=== PATIENT | male | born 1980 | race Asian ===

== ENCOUNTER → 2017-12-26 | Emergency (ER) | payer OTHER ==
[~2017-12-26] VITALS: Ht 172.7 cm; Wt 63.5 kg
[~2017-12-26] MED LIST: IBUPROFEN600 M1 PO; PERCOCET 5-3251 EACH PO; PROTONIX40 M3 PO; REGLAN10 M1 PO
[2017-12-26 23:12] LABS: ABSOLUTE BASOPHIL COUNT 0.1 /CUMM (0.0-0.2); ABSOLUTE EOSINOPHIL COUNT 0 /CUMM (0.0-0.7); ABSOLUTE GRANULOCYTE CT 3.2 /CUMM (1.4-6.5); ABSOLUTE LYMPH COUNT 3.3 /CUMM (1.2-3.4); ABSOLUTE MONOCYTE COUNT 0.7 /CUMM (0.10-0.60); BASOPHIL % 0.7 % (0.0-2.0); EOSINOPHIL % 0.4 % (0-5); GRANULOCYTE % 43.8 % (42.2-75.2); HEMATOCRIT 50.4 % (42-52); MEAN CORPUSCULAR HGB 31.3 PG (27.0-31.0); MEAN CORPUSCULAR HGB CONC 34.4 G/DL (33.0-37.0); MEAN PLATELET VOLUME 7.8 FL (7.4-10.4); PLATELET COUNT 151 /CUMM (130-400); RBC DISTRIBUTION WIDTH 12.9 % (11.5-14.5); RED BLOOD CELL CT 5.54 /CUMM (4.70-6.10); WHITE BLOOD CELL COUNT 7.3 /CUMM (4.8-10.8)
--- NOTE | 2017-12-26 23:55 | ED GENERAL ADULT ---
See Addendum History of Present Illness General Chief Complaint: Nausea, Vomiting, Diarrhea Stated Complaint: NVD,DIZZINESS Source: patient, family Exam Limitations: no limitations Vital Signs & Intake/Output Vital Signs & Intake/Output Vital Signs Date Time Temp Pulse Resp B/P B/P Pulse O2 O2 Flow FiO2 Mean Ox Delivery Rate 12/27 0359 98.3 97 18 140/80 12/27 0358 98.3 97 18 140/80 99 Room Air 12/27 0207 95 18 115/71 12/27 0206 95 18 115/71 100 Room Air 12/26 2303 98.7 123 18 157/108 98 Room Air ED Intake and Output 12/27 0000 12/26 1200 Intake Total 0 Output Total Balance 0 Intake, Oral 0 Patient 140 lb Weight Weight Estimated Measurement Method Allergies Coded Allergies: No Known Allergies (09/09/17) Reconcile Medications Ibuprofen 600 MG TABLET 1 TAB PO Q6PRN PRN pain with food Oxycodone HCl/Acetaminophen (Percocet 5-325 MG Tablet) 5 MG-325 MG TABLET 1-2 TAB PO Q6P PRN severe pain Pantoprazole Sodium (Protonix) 40 MG TABLET. 1 TAB PO DAILY GERD Triage Note: RECEIVED 37 YO MALE REPORTS HE HAS BEEN DRINKING ALCOHOL EVERY DAY AND REPORTS NAUSEA AND VOMITING 8 TO 10 TIMES SINCE THIS AM. PT ALSO REPORTS GENERALIZED ABDOMINAL PAIN 6/10 SINCE THIS AM. Triage Nurses Notes Reviewed? yes Onset: Gradual Duration: day(s):, waxing and waning Timing: recent history Injury Environment: home Severity: moderate Modifying Factors: Improves With: rest. Worsens With: other (worse w/palpation). Associated Symptoms: diffuse abd pain... "I also need detox" HPI: 37 yo gentleman presents with mid epigastric discomfort and nausea/vomiting for the past day. He notes that he drinks alcohol, "usually liquor at night, but this morning I had beer.... I can't really say how much I drink, I just drink a lot." He notes that he has never had seizures. His last drink was this morning. When he stops drinking, he gets very shakey. He denies Si/HI. He is otherwise well. Past History Travel History Traveled to [place] past 21 day No Medical History Any Pertinent Medical History? 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 No Review of Systems Review of Systems Constitutional: Reports: no symptoms. EENTM: Reports: no symptoms. Respiratory: Reports: no symptoms. Cardiovascular: Reports: no symptoms. GI: Reports: no symptoms. Genitourinary: Reports: no symptoms. Musculoskeletal: Reports: no symptoms. Skin: Reports: no symptoms. Neurological/Psychological: Reports: no symptoms. Hematologic/Endocrine: Reports: no symptoms. Immunologic/Allergic: Reports: no symptoms. All Other Systems: Reviewed and Negative Physical Exam Physical Exam General Appearance: well developed/nourished, mild distress Head: atraumatic, normal appearance Eyes: Bilateral: normal appearance. Ears, Nose, Throat: normal pharynx, slighly dry mucosa Neck: normal inspection, supple, full range of motion Respiratory: normal breath sounds, chest non-tender, no respiratory distress, quiet respiration, lungs clear Cardiovascular: regular rate/rhythm Gastrointestinal: normal bowel sounds, soft, no organomegaly, mild mid epigastric tenderness to palpation. Back: normal inspection, normal range of motion Neurologic/Psych: no motor/sensory deficits, awake, alert, oriented x 3 Core Measures ACS in differential dx? No CVA/TIA Diagnosis: No Sepsis Present: No Sepsis Focused Exam Completed? No Progress Differential Diagnoses I considered the following diagnoses in my evaluation of the patient: gastritis vs reflux vs other. alcoholism vs other. Plan of Care: Orders Procedure Date/time Status Regular Diet 12/27 B Active CASE MANAGEMENT CONSULT 12/27 2323 Active Add-on Test (ER Only) 12/26 2322 Active CIWA 12/26 2322 Active URINE DRUG SCREEN FOR ER ONLY 12/26 2322 Complete ETHANOL 12/26 2305 Complete TROPONIN LEVEL 12/27 2255 Complete LIPASE 12/27 2255 Complete HEPATIC FUNCTION PANEL 12/27 2255 Complete CBC WITHOUT DIFFERENTIAL 12/27 2255 Complete BASIC METABOLIC PANEL 12/27 2255 Complete AMYLASE 12/27 2255 Complete EKG 12/27 2255 Active Laboratory Tests 12/26/17 2330: Urine Opiates Screen < 100, Methadone Screen < 40, Barbiturate Screen < 60, Ur Phencyclidine Scrn < 6.00, Amphetamines Screen < 100, U Benzodiazepines Scrn < 85, Urine Cocaine Screen < 50, Urine Cannabis Screen < 5.00 12/26/17 2305: Anion Gap 18 H, Estimated GFR > 60, BUN/Creatinine Ratio 17.1, Glucose 113 H, Calcium 9.6, Total Bilirubin 0.9, Direct Bilirubin 0.6 H, AST 104 H, ALT 129 H, Alkaline Phosphatase 107, Troponin I < 0.01, Total Protein 9.1 H, Albumin 5.6 H, Amylase 99, Lipase 356 H, CBC w Diff NO MAN DIFF REQ, RBC 5.54, MCV 91.0, MCH 31.3 H, MCHC 34.4, RDW 12.9, MPV 7.8, Gran % 43.8, Lymphocytes % 44.9 , Monocytes % 10.2 H, Eosinophils % 0.4, Basophils % 0.7, Absolute Granulocytes 3.2, Absolute Lymphocytes 3.3, Absolute Monocytes 0.7 H, Absolute Eosinophils 0 , Absolute Basophils 0.1, Serum Alcohol 300.0 Diagnostic Imaging: Viewed by Me: Radiology Read, CT Scan. Discussed w/RAD: Radiology Read, CT Scan. Radiology Impression: PATIENT: DEVON SEYMOUR PRESENT AGE: 37 PATIENT ACCOUNT NO: [id number] : 79 LOCATION: [facility] ORDERING PHYSICIAN: Souleymane Jones MD SERVICE DATE: 12/27/17 EXAM TYPE: CAT - CT ABD & PELVIS W/O IV CONTRAS EXAMINATION: CT ABDOMEN AND PELVIS WITHOUT CONTRAST CLINICAL INFORMATION: Vomiting COMPARISON: 11/20/2016 TECHNIQUE: Multidetector volumetric imaging was performed from the superior aspect of the liver through the pubic symphysis. Sagittal and coronal reformatted images were obtained on the technologist's workstation. DLP: 269.82 mGy-cm FINDINGS: LUNG BASES: The visualized lung bases are unremarkable. LIVER, GALLBLADDER, AND BILIARY TREE: The liver demonstrates hypoattenuation suspicious for steatosis. No focal hepatic lesion or biliary ductal dilatation is present. The gallbladder is unremarkable with no evidence of radiopaque gallstones, gallbladder wall thickening, or obvious pericholecystic inflammatory changes. PANCREAS: Unremarkable. SPLEEN: Unremarkable. ADRENAL GLANDS: Unremarkable. KIDNEYS AND URETERS: The kidneys are normal in size, shape, and attenuation. No hydronephrosis, hydroureter, or calculi seen. No perinephric stranding. BLADDER: Unremarkable. GASTROINTESTINAL TRACT: Assessment for wall thickening in some segments of the colon is limited due to luminal collapse, though no significant pericolonic stranding is seen to strongly suggest a colitis. No evidence of bowel obstruction. The appendix is not identified. No free fluid or free air is seen. ABDOMINAL WALL: No significant hernia is appreciated. LYMPH NODES: Normal. VASCULAR: Unremarkable. PELVIC VISCERA: Unremarkable. OSSEOUS STRUCTURES: There are a few subacute to chronic appearing posterolateral lower left rib fractures. IMPRESSION: 1. No acute findings identified in the abdomen/pelvis. 2. Hepatic steatosis. DICTATED BY: Rocky Melendez MD DATE/TIME DICTATED:12/27/1748 PLEATER HAND:SLAVA DATE/TIME TRANSCRIBED:12/27/1748 CONFIDENTIAL, DO NOT COPY WITHOUT APPROPRIATE AUTHORIZATION. <Electronically signed in Other Vendor System> SIGNED BY: Rocky Melendez MD 12/27/17 0100 Initial ED EKG: nsr, no acute changes Hand-Off Endorsed To: David Gutierrez MD Endorsed Time: 0700 Pending: consult Departure Departure Disposition: HOME OR SELF CARE Condition: Stable Clinical Impression Primary Impression: Abdominal pain, unspecified site Secondary Impressions: Alcohol intoxication, Alcoholism, Nausea and vomiting Referrals: Trey Cohen MD (PCP/Family) Departure Forms: Customer Survey General Discharge Information Comments 12/27/17, 3:39am... pt resting comfortably... elevated lft's consistent with mild alcoholic hepatitis... pt wishes to stay in am for evaluation for detox.... etoh 300.... supportive medications given. Pt to be signed out to dr. gutierrez at 7am, 12/27/17 Critical Care Note Critical Care Note Critical Care Time: non-applicable Pt to be signed out to dr. gutierrez at 7am, 12/27/17 Critical Care Note Critical Care Note Critical Care Time: non-applicable
--- NOTE | 2017-12-27 01:00 | CT SCAN REPORT ---
EXAMINATION: CT ABDOMEN AND PELVIS WITHOUT CONTRAST CLINICAL INFORMATION: Vomiting COMPARISON: 11/20/2016 TECHNIQUE: Multidetector volumetric imaging was performed from the superior aspect of the liver through the pubic symphysis. Sagittal and coronal reformatted images were obtained on the technologist's workstation. DLP: 269.82 mGy-cm FINDINGS: LUNG BASES: The visualized lung bases are unremarkable. LIVER, GALLBLADDER, AND BILIARY TREE: The liver demonstrates hypoattenuation suspicious for steatosis. No focal hepatic lesion or biliary ductal dilatation is present. The gallbladder is unremarkable with no evidence of radiopaque gallstones, gallbladder wall thickening, or obvious pericholecystic inflammatory changes. PANCREAS: Unremarkable. SPLEEN: Unremarkable. ADRENAL GLANDS: Unremarkable. KIDNEYS AND URETERS: The kidneys are normal in size, shape, and attenuation. No hydronephrosis, hydroureter, or calculi seen. No perinephric stranding. BLADDER: Unremarkable. GASTROINTESTINAL TRACT: Assessment for wall thickening in some segments of the colon is limited due to luminal collapse, though no significant pericolonic stranding is seen to strongly suggest a colitis. No evidence of bowel obstruction. The appendix is not identified. No free fluid or free air is seen. ABDOMINAL WALL: No significant hernia is appreciated. LYMPH NODES: Normal. VASCULAR: Unremarkable. PELVIC VISCERA: Unremarkable. OSSEOUS STRUCTURES: There are a few subacute to chronic appearing posterolateral lower left rib fractures. IMPRESSION: 1. No acute findings identified in the abdomen/pelvis. 2. Hepatic steatosis.
[2017-12-27 07:40] VITALS: BP 130/72
== END ==
LOC: ERH 22:51
PROVIDERS: Pediatrics
DX: R10.13 Epigastric pain (principal); F10.20 Alcohol dependence, uncomplicated; R11.2 Nausea with vomiting, unspecified
CPT/HCPCS: 74176; 80307; 93005; 93010; 96374; 96375; G0480; J2550; J3101

== ENCOUNTER 2018-02-02 21:50 | Emergency (ER) | payer OTHER ==
--- NOTE | 2018-02-02 23:57 | ED EYE COMPLAINT ---
History of Present Illness General Chief Complaint: Eye Problems Stated Complaint: "THINK SPIDER BITE TO L EYE" PER PT Source: patient, old records Exam Limitations: no limitations Vital Signs & Intake/Output Vital Signs & Intake/Output Vital Signs Date Time Temp Pulse Resp B/P B/P Pulse O2 O2 Flow FiO2 Mean Ox Delivery Rate 02/02 2153 97.5 93 18 163/113 100 Room Air Allergies Coded Allergies: No Known Allergies (09/09/17) Reconcile Medications Ibuprofen 600 MG TABLET 1 TAB PO Q6PRN PRN pain with food Metoclopramide HCl (Reglan) 10 MG TABLET 1 TAB PO Q6 PRN NAUSEA/VOMITING 30 minutes before meals and bedtime Oxycodone HCl/Acetaminophen (Percocet 5-325 MG Tablet) 5 MG-325 MG TABLET 1-2 TAB PO Q6P PRN severe pain Pantoprazole Sodium (Protonix) 40 MG TABLET. 1 TAB PO DAILY GERD Triage Note: PT TO TRIAGE WITH SWOLLEN L EYE. PT STATES "I THINK A SPIDE BITE," BUT PT UNSURE OF WHY HE THINKS THIS. +REDNESS, SWELLING, WATERING OF EYE. DENIES BLURRED VISION. STATES X2 DAYS. Triage Nurses Notes Reviewed? yes Onset: 2 days Duration: day(s):, constant, continues in ED Timing: recent history Injury Environment: home Severity: mild No Modifying Factors: none Left Eye Associated Symptoms: itching, eyelid redness, eyelid swelling HPI: 2 days prior to admission patient complains of left lower eyelid swelling with surrounding redness and tearing with itching. He denies fever chills nausea vomiting diarrhea abdominal pain chest pain shortness breath headache dysuria bleeding change in vision. Past History Travel History Traveled to [place] past 21 day No Medical History Any Pertinent Medical History? 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 No Review of Systems Review of Systems Constitutional: Reports: no symptoms. Eyes: Reports: see HPI, drainage, inflammation. Ear: Reports: no symptoms. Nose: Reports: no symptoms. Mouth: Reports: no symptoms. Throat: Reports: no symptoms. Respiratory: Reports: no symptoms. Cardiovascular: Reports: no symptoms. GI: Reports: no symptoms. Genitourinary: Reports: no symptoms. Musculoskeletal: Reports: no symptoms. Skin: Reports: see HPI, rash. Neurological/Psychological: Reports: no symptoms. Hematologic/Endocrine: Reports: no symptoms. Immunologic/Allergic: Reports: no symptoms. All Other Systems: Reviewed and Negative Physical Exam General Appearance: well developed/nourished, mild distress General Inspection: periorbital erythema Eyelid: erythema Conjunctiva/Sclera: normal inspection Cornea: normal inspection EOM: intact Pupil: normal accommodation, normal pupil, PERRL Anterior Chamber: normal inspection General Inspection: normal inspection Eyelid: normal inspection Conjunctiva/Sclera: normal inspection Cornea: normal inspection EOM: intact Pupil: normal accommodation, normal pupil, PERRL Anterior Chamber: normal inspection Physical Exam Head: atraumatic Ears: Bilateral: canal normal, Tympanic normal. Nose: normal inspection Mouth/Throat: normal mouth inspection, pharynx normal Neck: normal inspection, supple, full range of motion, no midline tenderness Cardiovascular/Respiratory: normal breath sounds, normal peripheral pulses, regular rate/rhythm, no respiratory distress Neurologic/Psych: awake, alert, oriented x 3, normal mood/affect Skin: intact, normal color, warm/dry, rash Progress Differential Diagnosis: conjunctivitis Plan of Care: Current Medications Sig/Tim Start time Last Medication Dose Stop Time Status Admin Cephalexin 500 MG ONCE ONE 02/02 2345 UNVr (Keflex) 02/02 2346 Polymyxin/ 2 GTT ONCE ONE 02/02 2345 UNVr Trimethoprim Sulfate 02/02 2346 (Polytrim) Departure Departure Time of Disposition: 0003 Disposition: HOME OR SELF CARE Condition: Stable Clinical Impression Primary Impression: Blepharitis of eyelid of left eye Referrals: Vicki PAYNE,Trey Armando (PCP/Family) Luis Alberto PAYNE,Salomón Harmon Call for ophthalmology follow up Departure Forms: Customer Survey General Discharge Information Prescriptions: Current Visit Scripts Cephalexin (Keflex) 1 CAP PO TID #30 CAP
[2018-02-03] MEDS ORDERED: KEFLEX500 M1 PO (00:04)
[2018-02-03 00:12] VITALS: BP 144/102
== END 2018-02-03 00:17 ==
LOC: ERH 21:50
DX: H01.005 Unspecified blepharitis left lower eyelid (principal)
CPT/HCPCS: J3490

== ENCOUNTER 2018-03-24 06:00 | Emergency (ER) | payer OTHER ==
[~2018-03-24] VITALS: Ht 172.7 cm; Wt 59.0 kg
[~2018-03-24 06:00] MED LIST changes: +KEFLEX500 M1 PO
--- NOTE | 2018-03-24 07:01 | ED PSYCHIATRIC COMPLAINT ---
History of Present Illness General Chief Complaint: ETOH/Drug Related Complaint Stated Complaint: REQUESTING ETOH DETOX, DRINKING X 4DAYS PER PT Source: patient Exam Limitations: poor historian Allergies Coded Allergies: No Known Allergies (03/24/18) Reconcile Medications No Known Home Medications Triage Note: TRIAGE: PATIENT TO ER FROM HOME REPORTING "BEEN DRINKING X 4 DAYS, NOW NAUSEOUS AND I FEEL MY LIVER IS ENLARGED. WHEN I BREATHE I FEEL PAIN ON MY R SIDE." LAST DRINK LAST NIGHT, "DRINK REGULARLY BUT HAVE NEVER DETOXED." TEARFUL IN TRIAGE. Triage Nurses Notes Reviewed? yes HPI: Patient presents for evaluation of chronic alcohol use and need for detoxification. In addition is also complaining of right-sided abdominal pain that worsens with breathing. He is concerned about liver enlargement. Patient admits to heavy alcohol intake over the past 4 days. He does admit to alcohol use for quite a while. (Myra PAYNE,David Menendez) Vital Signs & Intake/Output Vital Signs & Intake/Output Vital Signs Date Time Temp Pulse Resp B/P B/P Pulse O2 O2 Flow FiO2 Mean Ox Delivery Rate 03/24 0626 98 Room Air 03/24 0620 98.6 112 18 159/106 03/24 0617 98.6 112 18 159/106 98 Room Air (Carmen PAYNE,Smith Page) Past History Travel History Traveled to [place] past 21 day No Medical History Any Pertinent Medical History? 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 No (Myra PAYNE,David Menendez) Review of Systems Review of Systems Constitutional: Reports: no symptoms. EENTM: Reports: no symptoms. Respiratory: Reports: no symptoms. Cardiovascular: Reports: no symptoms. GI: Reports: no symptoms. Genitourinary: Reports: no symptoms. Musculoskeletal: Reports: no symptoms. Skin: Reports: no symptoms. Neurological/Psychological: Reports: see HPI. Hematologic/Endocrine: Reports: no symptoms. Immunologic/Allergic: Reports: no symptoms. All Other Systems: Reviewed and Negative (Myra PAYNE,David Menendez) Physical Exam Physical Exam General Appearance: SEE BELOW Neurological/Psychiatric: SEE BELOW Comments: General: Alert, calm, cooperative Head: Normocephalic, atraumatic Eyes: Normal inspection, no nystagmus, EOMI Ears: Normal inspection Nose: Normal inspection Throat: Moist mucosa Neck: Supple, no goiter Heart: Regular rate and rhythm, no murmurs rubs or gallops Lungs: Clear to auscultation bilaterally with good air entry Abdomen: Soft nontender nondistended, normal bowel sounds Chest: Nontender Extremities: Normal range of motion grossly, mild tremors present, no cyanosis clubbing or edema of the upper extremities Neurologic: cranial nerves II through XII grossly intact, speech clear, gait normal Psychiatric: No apparent delusions or hallucinations, no pressured speech or thought blocking SAD PERSONS Done? patient not suicidal (Myra PAYNE,David Menendez) Progress Differential Diagnosis: drug intoxication, drug withdrawal, electrolyte abnormality, hypoglycemia Plan of Care: Orders Procedure Date/time Status Regular Diet 03/24 B Active CIWA 03/24 700 Active URINE DRUG SCREEN FOR ER ONLY 03/24 700 Active LIPASE 03/24 700 Active ETHANOL 03/24 700 Active COMPREHENSIVE METABOLIC PANEL 03/24 700 Active CBC WITHOUT DIFFERENTIAL 03/24 700 Complete Laboratory Tests 03/24/18 0755: Methadone Screen Pending, Barbiturate Screen Pending, Ur Phencyclidine Scrn Pending, Amphetamines Screen Pending, U Benzodiazepines Scrn Pending, Urine Cocaine Screen Pending, Urine Cannabis Screen Pending 03/24/18 0726: Sodium Pending, Potassium Pending, Chloride Pending, Carbon Dioxide Pending, Anion Gap Pending, BUN Pending, Creatinine Pending, BUN/Creatinine Ratio Pending , Glucose Pending, Calcium Pending, Total Bilirubin Pending, AST Pending, ALT Pending, Alkaline Phosphatase Pending, Total Protein Pending, Albumin Pending, Globulin Pending, Albumin/Globulin Ratio Pending, Lipase Pending, CBC w Diff NO MAN DIFF REQ, RBC 5.40, MCV 91.0, MCH 30.8, MCHC 33.9, RDW 12.6, MPV 7.3 L, Gran % 57.7, Lymphocytes % 30.3, Monocytes % 11.2 H, Eosinophils % 0.4, Basophils % 0.4, Absolute Granulocytes 3.4, Absolute Lymphocytes 1.8, Absolute Monocytes 0.7 H, Absolute Eosinophils 0, Absolute Basophils 0, Serum Alcohol Pending (Myra PAYNE,David Menendez) Comments: Patient along wants to stay for detox. Patient is alert and oriented 3. Patient is clinically sober. Patient denies any suicidal or homicidal ideations. The patient is stable for discharge. (Carmen PAYNE,Smith Page) Departure Departure Condition: Stable Clinical Impression Primary Impression: Alcohol dependence Referrals: iVcki PAYNE,rTey Armando (PCP/Family) Departure Forms: Customer Survey General Discharge Information Prescriptions: Current Visit Scripts No Known Home Medications (Myra PAYNE,David Menendez) Departure Disposition: HOME OR SELF CARE Additional Instructions: Follow up with a detox facility. Return if symptoms worsen or for any concerns. (Carmen PAYNE,Smith Page)
[2018-03-24 07:44] LABS: ABSOLUTE BASOPHIL COUNT 0 /CUMM (0.0-0.2); ABSOLUTE EOSINOPHIL COUNT 0 /CUMM (0.0-0.7); ABSOLUTE GRANULOCYTE CT 3.4 /CUMM (1.4-6.5); ABSOLUTE LYMPH COUNT 1.8 /CUMM (1.2-3.4); ABSOLUTE MONOCYTE COUNT 0.7 /CUMM (0.10-0.60); BASOPHIL % 0.4 % (0.0-2.0); EOSINOPHIL % 0.4 % (0-5); GRANULOCYTE % 57.7 % (42.2-75.2); HEMATOCRIT 49.2 % (42-52); MEAN CORPUSCULAR HGB 30.8 PG (27.0-31.0); MEAN CORPUSCULAR HGB CONC 33.9 G/DL (33.0-37.0); MEAN PLATELET VOLUME 7.3 FL (7.4-10.4); PLATELET COUNT 191 /CUMM (130-400); RBC DISTRIBUTION WIDTH 12.6 % (11.5-14.5)
[2018-03-24 08:02] VITALS: BP 140/90
== END 2018-03-24 08:28 ==
LOC: ERH 06:00
PROVIDERS: Emergency Medicine
DX: F10.20 Alcohol dependence, uncomplicated (principal)
CPT/HCPCS: 80307; G0480; J3101